=== PATIENT | male | born 1975 | race Two or more races ===

== ENCOUNTER 2023-05-28 17:33 | Emergency (ER) | payer SELFPAY ==
[2023-05-28] MEDS ORDERED: AMLODIPINE BESY10 MG PO ×2 (21:52→21:54)
[2023-05-28] MEDS ORDERED: LISINOPRIL20 M1 PO ×2 (21:52→21:54)
[2023-05-28] MEDS ORDERED: METFORMIN HCL1000 MG PO ×2 (21:53→21:54)
[2023-05-28 22:06] VITALS: BP 154/77
== END 2023-05-28 22:06 | disposition home or self-care (01) | DRG 951 ==
LOC: ED 17:33
DX: Z76.0 Encounter for issue of repeat prescription (principal); I10 Essential (primary) hypertension; E11.9 Type 2 diabetes mellitus without complications; Z79.84 Long term (current) use of oral hypoglycemic drugs